=== PATIENT | male | born 1940 | race Caucasian/White ===

== ENCOUNTER 2017-11-26 06:50 | Inpatient (IN) | payer MEDICARE, OTHER ==
[~2017-11-26] VITALS: Ht 180.3 cm; Wt 94.6 kg
[~2017-11-26 06:50] MED LIST: BACITRACIN 50,000 UNIT ONE; BUPIVACAINE/PF 0.5% ONE; EPINEPHRINE 1 MG/ML, 1ML ONE; THROMBIN 5,000 UNIT VIAL TP ONE; VANCOMYCIN 1,000 MG ONE
[2017-11-26] MEDS ORDERED: LACTATED RINGERS 1,000 ML IV SCH (07:37)
[2017-11-26] MEDS ORDERED: ATOR40TA78 PO (07:42)
[2017-11-26] MEDS ORDERED: SPIR50TA2 PO (07:42)
[2017-11-26] MEDS ORDERED: LOSA100T6 PO (07:42)
[2017-11-26] MEDS ORDERED: GABA300C10 PO (07:42)
[2017-11-26] MEDS ORDERED: CLOP75TA PO (07:42)
[2017-11-26 07:55] VITALS: BP 183/80
[2017-11-26] MEDS ORDERED: ACET325C5 PO (07:59)
[2017-11-26] MEDS ORDERED: LIDOCAINE-MPF 1%, 2ML INFIL ONE (08:00)
[2017-11-26] MEDS ORDERED: FENTANYL PF 100 MCG/2ML ONE (08:32)
[2017-11-26] MEDS ORDERED: MIDAZOLAM 1 MG/ML, 2ML ONE (08:32)
[2017-11-26] MEDS ORDERED: ACETAMINOPHEN 500 MG TABLET PO ONE (09:00)
[2017-11-26] MEDS ORDERED: DIAZEPAM 5 MG TABLET PO ONE (09:00)
[2017-11-26] MEDS ORDERED: FAMOTIDINE 20 MG TABLET PO ONE (09:00)
[2017-11-26] MEDS ORDERED: ONDANSETRON ODT 8 MG PO ONE (09:00)
[2017-11-26] MEDS ORDERED: OXYcodone IR 5MG TABLET PO ONE (09:00)
[2017-11-26] MEDS ORDERED: GABAPENTIN 300 MG CAPSULE PO ONE (09:00)
[2017-11-26] MEDS ORDERED: GLYCOPYRROLATE 0.2MG/1ML, 5ML ONE (09:23)
[2017-11-26] MEDS ORDERED: CEFAZOLIN 1,000 MG ONE ×2 (09:23→10:33)
[2017-11-26] MEDS ORDERED: ROCURONIUM 10 MG/ML,10ML ONE (09:23)
[2017-11-26] MEDS ORDERED: NEOSTIGMINE 1 MG/ML, 10ML ONE (09:23)
[2017-11-26] MEDS ORDERED: DEXAMETHASONE 4 MG/ML, 1ML ONE ×2 (09:23→10:33)
[2017-11-26] MEDS ORDERED: SUCCINYLCHOLINE 20 MG/ML, 10ML ONE ×2 (09:23→10:33)
[2017-11-26] MEDS ORDERED: PROPOFOL 10 MG/ML, 20ML ONE (10:33)
[2017-11-26] MEDS ORDERED: OXYcodone/APAP 5/325MG TABLET PO PRN (11:00)
[2017-11-26] MEDS ORDERED: DIPHENHYDRAMINE 50 MG/ML, 1ML IVPush PRN (11:00)
[2017-11-26] MEDS ORDERED: SENNA/DOCUSATE TABLET PO PRN (11:00)
[2017-11-26] MEDS ORDERED: ONDANSETRON 2MG/ML, 2ML IVPush PRN (11:00)
[2017-11-26] MEDS ORDERED: BISACODYL 10 MG SUPP PR PRN (11:00)
[2017-11-26] MEDS ORDERED: DIPHENHYDRAMINE 50 MG CAPSULE PO PRN (11:00)
[2017-11-26] MEDS ORDERED: METHOCARBAMOL 750 MG TABLET PO PRN (11:00)
[2017-11-26] MEDS ORDERED: MORPHINE SULFATE 4 MG/ML, 1ML IVPush PRN (11:00)
[2017-11-26] MEDS ORDERED: MAGNESIUM HYDROXIDE 8%, 30ML UDC PO PRN (11:00)
[2017-11-26] MEDS ORDERED: HYDROcodone/APAP 5/325 TABLET PO PRN (11:00)
[2017-11-26] MEDS ORDERED: LABETALOL 5MG/ML, 20ML IVPush PRN (11:00)
[2017-11-26] MEDS ORDERED: PROMETHAZINE 25 MG/ML, 1ML IM PRN (11:00)
[2017-11-26] MEDS ORDERED: PHARMACY MAY ADJ FOR RENAL FX MC PRN (11:00)
[2017-11-26 12:30] VITALS: BP 155/84
[2017-11-26 13:20] VITALS: BP 155/65
[2017-11-26] MEDS ORDERED: ONDANSETRON ODT 4 MG PO PRN (13:30)
[2017-11-26 16:00] VITALS: BP 137/81
[2017-11-26] MEDS: CEFAZOLIN PMX 1GM/50ML 50 ML IVPB SCH (17:35)
[2017-11-26] MEDS: D5%-0.9% NACL+KCL 20MEQ 1,000 ML IV SCH (17:35)
[2017-11-26 19:48] VITALS: BP 129/62
[2017-11-26] MEDS: SODIUM CHLORIDE FLUSH 10ML SYR IVF SCH (20:23)
[2017-11-26] MEDS ORDERED: ATORVASTATIN 40 MG TABLET PO SCH (21:00)
[2017-11-27 00:10] VITALS: BP 145/77
[2017-11-27] MEDS: CEFAZOLIN PMX 1GM/50ML 50 ML IVPB SCH (01:33)
[2017-11-27] MEDS: D5%-0.9% NACL+KCL 20MEQ 1,000 ML IV SCH (04:36)
[2017-11-27 05:25] LABS: BASOPHILS % (AUTO) 0 % (0-1); EOSINOPHILS % (AUTO) 0 % (1-7); LYMPHOCYTES % (AUTO) 5 % (22-44); MD NO; MEAN CORPUSCULAR HEMOGLOBIN 33.5 pg (27.5-34.5); MEAN CORPUSCULAR HGB CONC 33.6 g/dL (33.2-36.2); MEAN CORPUSCULAR VOLUME 99.8 fL (81-97); MEAN PLATELET VOLUME 9.3 fL (7.4-10.4); MONOCYTES # (AUTO) 0.58 x10^3/uL (0.2-0.8); MONOCYTES % (AUTO) 6 % (2-9); NEUTROPHILS % (AUTO) 89 % (42-75); PLATELET COUNT 172 x10^3/uL (130-400); RED BLOOD COUNT 3.43 x10^6/uL (4.38-5.82); RED CELL DISTRIBUTION WIDTH 13.7 % (9.4-14.8)
[2017-11-27 05:31] LABS: ANION GAP 8 mmol/L (5-15); CALCIUM 9.1 mg/dL (8.5-10.1); CHLORIDE 105 mmol/L (98-107); CREATININE 1.46 mg/dL (0.7-1.3)
[2017-11-27 07:48] VITALS: BP 180/79
[2017-11-27] MEDS: SODIUM CHLORIDE FLUSH 10ML SYR IVF SCH (08:04)
[2017-11-27] MEDS ORDERED: GABAPENTIN 100 MG CAPSULE PO SCH ×2 (09:00)
[2017-11-27] MEDS ORDERED: SPIRONOLACTONE 50 MG TABLET PO SCH (09:00)
[2017-11-27] MEDS ORDERED: LOSARTAN 50MG TABLET PO SCH ×2 (09:00)
[2017-11-27] MEDS ORDERED: ACETAMINOPHEN 325 MG TABLET PO PRN (09:00)
[2017-11-27] MEDS ORDERED: ENOXAPARIN 40 MG/0.4 ML SQ SCH (09:00)
[2017-11-27 11:12] VITALS: BP 178/76
[2017-11-27] MEDS ORDERED: CYCL-259 PO (12:20)
[2017-11-27] MEDS ORDERED: HYDR-3240 PO (12:20)
[2017-11-27] MEDS ORDERED: ATORVASTATIN 40 MG TABLET PO SCH (21:00)
[2017-12-03] MEDS ORDERED: CLOPIDOGREL 75 MG TABLET PO SCH (09:00)
== END 2017-11-27 12:36 | disposition home or self-care (01) | DRG 515 ==
LOC: OUT 06:50 → ORIP 10:47 → 4NOR 13:09 → DCLOUNGE 11-27 11:45
PROVIDERS: ADMIT Neurological Surgery; ATTEND Neurological Surgery
PROC: 01NR0ZZ Release Sacral Nerve, Open Approach (ICD-10-PCS; 2017-11-26)
PROC: 01NB0ZZ Release Lumbar Nerve, Open Approach (ICD-10-PCS; principal; 2017-11-26 09:30)
DX: M51.16 Intervertebral disc disorders with radiculopathy, lumbar region (principal); N17.0 Acute kidney failure with tubular necrosis; R71.0 Precipitous drop in hematocrit; M48.062 Spinal stenosis, lumbar region with neurogenic claudication
CPT/HCPCS: 36415; 72100; 80048; 85025; C1729; J0171; J0690; J1100; J1650; J2250; J2704; J2710; J3010; J3370; J3490; Q0162; J0330; J3480; J7120